=== PATIENT | female | born 1965 | race Two or more races ===

== ENCOUNTER → 2016-11-06 | Outpatient (CLI) | payer OTHER ==
--- NOTE | ~2016-11-06 | ST ---
Unit #: [id number] #: [id number] Patient: MARIO MENDEZ [id number] [address] [address] [id number] O MR#: [id number] NAME: MARIO MENDEZ : 1965 SEX: F STUDY DATE/TIME: 11/06/2016 UNIT: [facility] ROOM: STUDY DESCRIPTION: Attending Physician: Donna Brooks M.D. Referring Physician: Donna Brooks M.D. Primary Care Physician: [facility], CARDIOLOGY REPORT EXAM Exercise Cardiolite stress test. REASON FOR EXAM Palpitations and abnormal EKG. FINDINGS Baseline EKG at rest is normal sinus with frequent PVCs. PROCEDURE The patient exercised on the treadmill according to a modified Ariel protocol for 6 minutes and 25 seconds, achieving a work level of 7.2 METs. Resting heart rate was 75 beats per minute. Maximum heart rate was 148 beats per minute which represented 87% of max predicted heart rate. The patient's symptoms included palpitations which were more evident during rest, not during stress. The patient denied shortness of breath or chest pain. Arrhythmias noted were just PVCs that were frequent in nature but it occurred more in recovery and before stress than they did during peak exercise. She did have one isolated PVC at 3 minutes and 36 seconds into the Ariel protocol. The test was stopped due to maximum exertion reach. IMPRESSION 1. This was a negative EKG portion of the stress test. 2. No obvious ST elevation or depression. 3. Patient's only symptom included palpitations. 4. Arrhythmias noted were just PVCs that were frequent in nature but occurred more at rest than they did during stress. 5. Please correlate with Cardiolite imaging. Dictated by... Re Murcia APRN for Hortencia Rueda TD: 11/06/2016 15:18 JOB #: [id number] Unit #: [id number] #: [id number] Patient: MARIO MENDEZ CARDIOLOGY REPORT X CARDIOLOGY REPORT
--- NOTE | ~2016-11-06 | TH ---
Unit #: [id number] #: [id number] Patient: MARIO MENDEZ [id number] [address] [address] [id number] O MR#: [id number] NAME: MARIO MENDEZ : 1965 SEX: F STUDY DATE/TIME: 11/06/2016 UNIT: [facility] ROOM: STUDY DESCRIPTION: Exercise stress test - Nuclear Attending Physician: Donna Brooks M.D. Referring Physician: Donna Brooks M.D. Primary Care Physician: [facility] CARDIOLOGY REPORT PROCEDURE PERFORMED Exercise Cardiolite stress test - Nuclear portion. PROCEDURE Using technetium 99m-labeled Cardiolite, rest and stress SPECT images were obtained. Multiple SPECT images were obtained in various views, including horizontal and vertical long axis and short axis views of the left ventricle. Images were obtained by gated SPECT method. The patient was administered 10.3 mCi of Cardiolite at rest. The patient was administered 28.5 mCi of Cardiolite at peak exercise. Total exercise time is 6 minutes and 25 seconds on a modified Ariel protocol. On the stress images, there is normal perfusion noted. The rest images show normal perfusion. Comparing the rest and stress images, there is no stress-induced ischemia noted. The left ventricular ejection fraction is calculated to be 59%. There is no focal wall motion abnormality seen. CONCLUSION 1. No stress-induced ischemia noted. 2. The left ventricular ejection fraction is calculated to be 59%. 3. There is no focal wall motion abnormality seen. 4. Normal exercise Cardiolite stress test. 5. Extremely poor baseline exercise tolerance for age. Clinical correlation is requested. Dictated by... Hortencia Rueda/daniela TD: 11/06/2016 13:55 JOB #: [id number] Unit #: [id number] #: [id number] Patient: MARIO MENDEZ CARDIOLOGY REPORT X Donna Brooks MD <ELECTRONICALLY SIGNED> 03/14/17 1429 CARDIOLOGY REPORT
== END | disposition home or self-care (01) ==
LOC: CNUC 08:57
DX: I49.3 Ventricular premature depolarization (principal); R94.31 Abnormal electrocardiogram [ECG] [EKG]
CPT/HCPCS: 78452; 93017; A9500